=== PATIENT | female | born 1965 | race Caucasian/White ===

== ENCOUNTER 2018-05-06 13:09 | Emergency (ER) | payer BC, OTHER ==
[~2018-05-06] VITALS: Ht 162.6 cm; Wt 54.4 kg
[2018-05-06 13:15] VITALS: BP 137/67
--- NOTE | 2018-05-06 13:15 | NUR ---
PATIENT TO BED 12 VIA [facility]
[2018-05-06] MEDS ORDERED: NACL 0.9% 1,000 ML IV ONE ×2 (13:48→13:50)
[2018-05-06] MEDS ORDERED: NACL 0.9% 2,000 ML IV ONE ×2 (14:20→16:00)
--- NOTE | 2018-05-06 14:20 | NUR ---
PT STATES UNABLE TO VOID AT THIS TIME
[2018-05-06 14:24] LABS: BASOPHILS % (AUTO) 0.1 % (0.0-2.0); EOSINOPHILS % (AUTO) 0.1 % (0.0-4.0); HEMATOCRIT 43.3 % (36-48); HEMOGLOBIN 14.6 g/dL (12.0-16.0); LYMPHOCYTES # (AUTO) 1.2 K/uL (2.5-16.5); LYMPHOCYTES % (AUTO) 12.3 % (20.5-51.1); MEAN CORPUSCULAR HEMOGLOBIN 32 pg (27-31); MEAN CORPUSCULAR HGB CONC 34 g/dL (33-37); MEAN CORPUSCULAR VOLUME 95.6 fL (80-94); MONOCYTES # (AUTO) 0.5 K/uL (0.8-1.0); MONOCYTES % (AUTO) 4.8 % (1.7-9.3); NEUTROPHILS # (AUTO) 7.9 K/uL (1.8-7.7); NEUTROPHILS % (AUTO) 82.7 % (42.2-75.2); PLATELET COUNT (AUTO) 220 K/uL (140-450); RED BLOOD CELL COUNT(AUTO) 4.52 MIL/uL (4.20-5.40); RED CELL DISTRIBUTION WIDTH 13.1 % (11.6-13.7); WHITE BLOOD COUNT (AUTO) 9.6 K/uL (4.8-10.8)
--- NOTE | 2018-05-06 14:24 | NUR ---
PATIENT PRESENTS TO ED WITH PT CYCLED 14 MILES TODAY---ADMITS FELT FATIGUED, LEGS CRAMPING, AND ANXIOUS DENIES DRUG OR ETOH CONSUMPTION DENIES INJURY DENIES N/V/D; SKIN IS PINK/WARM/DRY; AAOX4 WITH EVEN AND STEADY GAIT; LUNGS CLEAR BL; HR EVEN AND REGULAR; PT DENIES ANY FEVER, CP, SOB, OR COUGH AT THIS TIME; PATIENT STATES PAIN OF 0/10 AT THIS TIME; VSS; PATIENT POSITIONED FOR COMFORT; HOB ELEVATED; BEDRAILS UP X2; BED DOWN. ER MD MADE AWARE OF PT STATUS.
[2018-05-06 14:35] LABS: PROTHROMBIN TIME 9.7 secs (10.8-13.4)
[2018-05-06 14:36] LABS: ANION GAP 13.3 (8-16); CARBON DIOXIDE 26.5 mmol/L (21-32); POTASSIUM 3.8 mmol/L (3.5-5.1)
--- NOTE | 2018-05-06 14:36 | NUR ---
PT SITTING UP IN [facility]---ADMITS FEELING STRONGER, MORE AWAKE AND BACK TO HERSELF. URINE COLLECTED, LAB NOTIFIED YELLOW STRAW COLOR
[2018-05-06 14:37] LABS: ACETONE, SERUM NEGATIVE (NEGATIVE)
[2018-05-06 14:44] LABS: ALBUMIN 4.6 g/dL (3.4-5.0); TOTAL BILIRUBIN 0.5 mg/dL (0.0-1.0)
[2018-05-06 14:45] LABS: MAGNESIUM 2.3 mg/dL (1.8-2.4); URIC ACID 5.1 mg/dL (2.6-7.2)
--- NOTE | 2018-05-06 14:49 | NUR ---
ATTEMPTED TO OBTAIN ABG FROM PATIENT. AFTER AN ATTEMPT TO FIND THE ARTERY WAS MADE, SHE REFUSED ANOTHER. NO SOB OR DISTRESS NOTED. PATIENT'S O2 SATS ARE 99% ON ROOM AIR WITH A PULSE OF 57 AND RATE OF 12.
[2018-05-06 14:51] LABS: D-DIMER < 100 ng/ml (0-400)
[2018-05-06 14:52] LABS: APPEARANCE,URINE CLEAR (CLEAR); BILIRUBIN,URINE NEGATIVE (NEGATIVE); BLOOD, URINE NEGATIVE (NEGATIVE); COLOR,URINE YELLOW (YELLOW); LEUKOCYTE ESTERASE ,URINE NEGATIVE (NEGATIVE); NITRITE, URINE NEGATIVE (NEGATIVE); PH,URINE 7.5 (5.0-9.0); UGLUCOSE NEGATIVE (NEGATIVE)
[2018-05-06 15:01] LABS: BARBITURATE, URINE NEG. ng/ml (NEG <=200); BENZODIAZEPINE, URINE NEG. ng/mL (NEG <=200); CANNABINOID, URINE NEG. ng/mL (NEG <=50); COCAINE, URINE NEG. ng/mL (NEG <=300); OPIATE, URINE NEG. ng/mL (NEG <=2000); PHENCYCLIDINE SCREEN,URINE NEG. ng/mL (NEG <=25)
--- NOTE | 2018-05-06 15:50 | NUR ---
PT SHARING SHE HAS CYCLED OVER 100 MILES IN ONE DAY---SPOKE ABOUT FAMILY AND TRAVEL EXPERIENCE PT SMILING LAUGHING IN [employer]IRIT---ASKING ABOUT DISPO MD NOTIFIED
[2018-05-06 16:42] VITALS: BP 110/58
--- NOTE | 2018-05-06 16:42 | NUR ---
Patient discharged with v/s stable. Written and verbal after care instructions given and explained. Patient verbalized understanding. Ambulatory with steady gait. All questions addressed prior to discharge. Advised to follow up with PMD.
== END 2018-05-06 16:42 | disposition home or self-care (01) ==
LOC: MED 13:09
DX: T67.5XXA Heat exhaustion, unspecified, initial encounter (principal); R25.2 Cramp and spasm; E86.0 Dehydration; X30.XXXA Exposure to excessive natural heat, initial encounter; Y93.I9 Activity, other involving external motion; Y92.89 Other specified places as the place of occurrence of the external cause; Y99.8 Other external cause status
CPT/HCPCS: 36415; 71045; 80053; 80305; 81003; 81025; 82009; 82550; 83605; 83735; 84484; 84550; 85025; 85379; 85610; 93005; 96360; 99285; C1758; G0482; J7030; Q0092